=== PATIENT | male | born 1965 | race Caucasian/White ===

== ENCOUNTER 2017-05-07 21:12 | Observation (INO) | payer OTHER ==
[~2017-05-07] VITALS: Ht 172.7 cm; Wt 82.0 kg
[2017-05-07 21:28] VITALS: BP 109/77; PULSE 104; RESP 18; O2SAT 97
[2017-05-07] MEDS ORDERED: LOSA50TA PO (21:36)
[2017-05-07] MEDS ORDERED: PROZ20CA11 PO (21:36)
[2017-05-07] MEDS ORDERED: METF750T PO (21:36)
[2017-05-07 21:38] VITALS: RESP 15; O2SAT 97
--- NOTE | 2017-05-07 21:41 | PD ---
HPI Chief Complaint: Syncope/Near-Syncope Time Seen by Provider: 21:15 Travel History International Travel<30 days: No Contact w/Intl Traveler<30days: No Traveled to known affect area: No History of Present Illness HPI 52-year-old white male with a history of type 2 diabetes and hypertension presents in police custody for medical clearance. The police had responded to the patient's home due to a domestic violence report. The patient admits to drinking approximate sixpack of beer today. While in the police car the patient states that he felt very hot. He stepped out of the vehicle became diaphoretic and near syncopal. The patient denies shortness of breath, nausea, vomiting. He does admit to having chest pressure now for the past few hours. He rates his pain a 3/10. He states that it's on the left side of his chest with radiation to his left shoulder. He states that this had started earlier in the day before he had his argument with family. He states that is been persistent since then. There has been no alleviating or exacerbating activities. He denies any abdominal pain, urinary symptoms, numbness, tingling or weakness. He denies any history of heart disease. He denies tobacco, drugs. PFSH Past Medical History Narrative Medical Depression, diabetes type 2, hypertension Depression: Yes Cardiovascular Problems: Yes (HTN) Diabetes: Yes Patient Takes Glucophage: Yes Tetanus Vaccination: < 5 Years Past Surgical History Surgical History: No Previous Surgery Social History Alcohol Use: Yes Tobacco Use: No Substance Use: No Allergies-Medications (Allergen,Severity, Reaction): Coded Allergies: No Known Allergies (Verified Allergy, Unknown, 05/07/17) Reported Meds & Prescriptions Reported Meds & Active Scripts Active Reported Metoprolol Tartrate 25 Mg Tab 12.5 Mg PO BID Amitriptyline (Amitriptyline HCl) 100 Mg Tab 100 Mg PO HS Prozac (Fluoxetine HCl) 20 Mg Cap 20 Mg PO DAILY Losartan (Losartan Potassium) 50 Mg Tab 100 Mg PO DAILY Metformin ER (Metformin HCl) 750 Mg Justino 750 Mg PO BID With evening meal Review of Systems General / Constitutional: No: Fever Eyes: No: Visual changes HENT: No: Headaches Cardiovascular: Positive: Chest Pain or Discomfort, Diaphoresis, No: Palpitations, Irregular Rhythm, Tachycardia Respiratory: Positive: Cough, No: Shortness of Breath, Wheezing Gastrointestinal: No: Nausea, Vomiting, Abdominal Pain Genitourinary: No: Dysuria Musculoskeletal: No: Pain Skin: No Rash Neurologic: No: Weakness Psychiatric: No: Depression Endocrine: No: Polydipsia Hematologic/Lymphatic: No: Easy Bruising Physical Exam Narrative GENERAL: Well-developed, well-nourished in no apparent distress. Nontoxic appearing. Appears intoxicated. Speech is slurred. Skin: The patient is clammy. HEAD: Normocephalic, atraumatic. EYES: Pupils equal round and reactive. Extraocular motions intact. No scleral icterus. No injection or drainage. ENT: Nose clear. Throat without erythema, tonsillar hypertrophy or exudate. Uvula midline. Airway patent. NECK: Trachea midline. Supple, nontender, moves head freely. No central bony tenderness or spasm. CARDIOVASCULAR: Regular rate and rhythm without murmurs, gallops, or rubs. RESPIRATORY: Few rhonchi. No wheezes or Rales. GASTROINTESTINAL: Abdomen soft, non-tender, nondistended. No hepato-splenomegaly , or palpable masses. No guarding. EXTREMITIES: No clubbing, cyanosis, or edema. No joint tenderness. BACK: Nontender without deformity. No flank tenderness. NEUROLOGICAL: Awake, alert and oriented x 3 .Cranial nerves grossly intact. Motor and sensory grossly within normal limits. Normal speech. Data Data Last Documented VS Vital Signs Date Time Temp Pulse Resp B/P (MAP) Pulse Ox O2 Delivery O2 Flow Rate FiO2 05/07/17 22:09 102 16 100/57 (71) 96 Room Air Orders Orders Electrocardiogram (05/07/17 21:33) Basic Metabolic Panel (Bmp) (05/07/17 21:33) Ckmb (Isoenzyme) Profile (05/07/17 21:33) Complete Blood Count With Diff (05/07/17 21:33) Magnesium (Mg) (05/07/17 21:33) Prothrombin Time / Inr (Pt) (05/07/17 21:33) Act Partial Throm Time (Ptt) (05/07/17 21:33) Troponin I (05/07/17 21:33) Lipase (05/07/17 21:33) Chest, Single Ap (05/07/17 21:33) Ecg Monitoring (05/07/17 21:33) Bilateral Bp Monitoring (05/07/17 21:33) Iv Access Insert/Monitor (05/07/17 21:33) Oximetry (05/07/17 21:33) Oxygen Administration (05/07/17 21:33) Aspirin Chew (Aspirin Chew) (05/07/17 21:45) Sodium Chloride 0.9% Flush (Ns Flush) (05/07/17 21:45) Nitroglycerin Sl (Nitrostat Sl) (05/07/17 21:45) Alcohol (Ethanol) (05/07/17 21:41) Sodium Chlor 0.9% 1000 Ml Inj (Ns 1000 M (05/07/17 22:15) Sodium Chlor 0.9% 1000 Ml Inj (Ns 1000 M (05/07/17 22:15) CKMB (05/07/17 21:48) CKMB% (05/07/17 21:48) Place In Observation (05/07/17 23:22) Activity Bed Rest With Brp (05/07/17 23:22) Vital Signs (Adult) Q4H (05/07/17 23:22) Cardiac Rhythm .As Directed (05/07/17 23:22) Notify Dr: Other .PRN (05/07/17 23:22) Notify Dr. Parameters (05/07/17 23:22) Resp Oxygen Nasal Cannula (05/07/17 ) Diet Npo (05/08/17 Breakfast) Ckmb (Isoenzyme) Profile (05/08/17 00:30) Ckmb (Isoenzyme) Profile (05/08/17 03:30) Troponin I (05/08/17 00:30) Troponin I (05/08/17 03:30) Electrocardiogram (05/08/17 00:30) Electrocardiogram (05/08/17 03:30) ^ Obtain (05/07/17 23:22) Sodium Chloride 0.9% Flush (Ns Flush) (05/07/17 23:30) Sodium Chloride 0.9% Flush (Ns Flush) (05/08/17 09:00) Ondansetron Inj (Zofran Inj) (05/07/17 23:30) Famotidine (Pepcid) (05/08/17 09:00) Aspirin (Aspirin) (05/08/17 09:00) Senior Ui Web Developer / Telemetry DESTIN.Q8H (05/07/17 23:22) Admit Order (Ed Use Only) (05/08/17 00:08) CKMB (05/08/17 01:05) CKMB% (05/08/17 01:05) Labs Laboratory Tests Test 05/07/17 21:40 05/07/17 21:48 Ethyl Alcohol Level 302 MG/DL White Blood Count 7.1 TH/MM3 Red Blood Count 4.55 MIL/MM3 Hemoglobin 14.2 GM/DL Hematocrit 41.9 % Mean Corpuscular Volume 92.1 FL Mean Corpuscular Hemoglobin 31.2 PG Mean Corpuscular Hemoglobin Concent 33.9 % Red Cell Distribution Width 13.2 % Platelet Count 223 TH/MM3 Mean Platelet Volume 6.6 FL Neutrophils (%) (Auto) 74.1 % Lymphocytes (%) (Auto) 18.4 % Monocytes (%) (Auto) 7.0 % Eosinophils (%) (Auto) 0.2 % Basophils (%) (Auto) 0.3 % Neutrophils # (Auto) 5.3 TH/MM3 Lymphocytes # (Auto) 1.3 TH/MM3 Monocytes # (Auto) 0.5 TH/MM3 Eosinophils # (Auto) 0.0 TH/MM3 Basophils # (Auto) 0.0 TH/MM3 CBC Comment DIFF FINAL Differential Comment Prothrombin Time 10.4 SEC Prothromb Time International Ratio 1.0 RATIO Activated Partial Thromboplast Time 19.4 SEC Blood Urea Nitrogen 8 MG/DL Creatinine 1.33 MG/DL Random Glucose 192 MG/DL Calcium Level 8.0 MG/DL Magnesium Level 2.0 MG/DL Sodium Level 139 MEQ/L Potassium Level 3.5 MEQ/L Chloride Level 103 MEQ/L Carbon Dioxide Level 22.2 MEQ/L Anion Gap 14 MEQ/L Estimat Glomerular Filtration Rate 56 ML/MIN Total Creatine Kinase 422 U/L Creatine Kinase MB 6.2 NG/ML Creatine Kinase MB % 1.5 % Troponin I LESS THAN 0.02 NG/ML Lipase 152 U/L MDM Medical Decision Making Medical Screen Exam Complete: Yes Emergency Medical Condition: Yes Medical Record Reviewed: Yes Interpretation(s) Laboratory Tests Test 05/07/17 21:40 05/07/17 21:48 Ethyl Alcohol Level 302 MG/DL White Blood Count 7.1 TH/MM3 Red Blood Count 4.55 MIL/MM3 Hemoglobin 14.2 GM/DL Hematocrit 41.9 % Mean Corpuscular Volume 92.1 FL Mean Corpuscular Hemoglobin 31.2 PG Mean Corpuscular Hemoglobin Concent 33.9 % Red Cell Distribution Width 13.2 % Platelet Count 223 TH/MM3 Mean Platelet Volume 6.6 FL Neutrophils (%) (Auto) 74.1 % Lymphocytes (%) (Auto) 18.4 % Monocytes (%) (Auto) 7.0 % Eosinophils (%) (Auto) 0.2 % Basophils (%) (Auto) 0.3 % Neutrophils # (Auto) 5.3 TH/MM3 Lymphocytes # (Auto) 1.3 TH/MM3 Monocytes # (Auto) 0.5 TH/MM3 Eosinophils # (Auto) 0.0 TH/MM3 Basophils # (Auto) 0.0 TH/MM3 CBC Comment DIFF FINAL Differential Comment Prothrombin Time 10.4 SEC Prothromb Time International Ratio 1.0 RATIO Activated Partial Thromboplast Time 19.4 SEC Blood Urea Nitrogen 8 MG/DL Creatinine 1.33 MG/DL Random Glucose 192 MG/DL Calcium Level 8.0 MG/DL Magnesium Level 2.0 MG/DL Sodium Level 139 MEQ/L Potassium Level 3.5 MEQ/L Chloride Level 103 MEQ/L Carbon Dioxide Level 22.2 MEQ/L Anion Gap 14 MEQ/L Estimat Glomerular Filtration Rate 56 ML/MIN Total Creatine Kinase 422 U/L Creatine Kinase MB 6.2 NG/ML Creatine Kinase MB % 1.5 % Troponin I LESS THAN 0.02 NG/ML Lipase 152 U/L EKG: Sinus tachycardia with a ventricular rate of 103. Left axis deviation (-30 ) with incomplete right bundle branch block. Nonspecific ST-T wave changes. No ST elevation. No STEMI. Differential Diagnosis MDM: High Differential diagnoses: Coronary artery disease, STEMI, angina, pneumothorax, pericarditis, endocarditis, hyperthyroidism, arrhythmia, pulmonary embolus, pneumonia, electrolyte abnormality Narrative Course IV access is obtained. Patient is placed on a monitor. Routine laboratory tests sent for analysis including EKG. Patient is given 2 baby aspirin and nitroglycerin sublingual. Patient has had no significant improvement with 2 nitroglycerin except for headache. His blood pressure has been maintained. The patient is intoxicated. His laboratory testing as mildly elevated CK but negative MB and troponin. EKG shows no acute ST changes. With the patient having this near syncopal event as well as associated chest pain we will observe him in the chest pain center. Once his alcohol is less than 200 he will be Transferred to the chest pain center. Patient is accompanied by PD. This is chest pain, alcohol intoxication Diagnosis Primary Impression: Chest pain Qualified Codes: R07.9 - Chest pain, unspecified Additional Impression: Alcohol intoxication Qualified Codes: F10.920 - Alcohol use, unspecified with intoxication, uncomplicated Admitting Information Admitting Physician Requests: Observation Condition: Stable Florentin Howe May 07, 2017 21:41
[2017-05-07] MEDS ORDERED: SODIUM CHLORIDE 0.9% FLUSH 10 ML FLUSH IVF PRN (21:45)
[2017-05-07] MEDS ORDERED: ASPIRIN 81 MG CHEW TAB PO ONE (21:45)
[2017-05-07 21:51] VITALS: BP 117/72; PULSE 112; RESP 15; O2SAT 95
[2017-05-07] MEDS: NITROGLYCERIN 0.4 MG SL 25 TABS/BTL SL SCH ×2 (21:52→22:01)
[2017-05-07 21:59] VITALS: BP 106/67; PULSE 109; RESP 14; O2SAT 96
--- NOTE | 2017-05-07 22:00 | RADRPT ---
EXAM DATE/TIME: 05/07/2017 21:37 [facility] COMPARISON: No previous studies available for comparison. INDICATIONS : Chest pain MEDICAL HISTORY : None. SURGICAL HISTORY : None. ENCOUNTER: Initial ACUITY: 1 day PAIN SCORE: 8/10 LOCATION: chest FINDINGS: A single view of the chest demonstrates the lungs to be symmetrically aerated without evidence of mas s, infiltrate or effusion. The cardiomediastinal contours are unremarkable. Osseous structures are intact. CONCLUSION: No acute disease. Jamie Fernandes MD on May 07, 2017 at 21:58 Board Certified Radiologist. This report was verified electronically.
[2017-05-07 22:09] VITALS: BP 100/57; PULSE 102; RESP 16; O2SAT 96
[2017-05-07 22:09] LABS: AUTOMATED NEUTROPHIL # 5.3 TH/MM3 (1.8-7.7); BASOPHIL % 0.3 % (0.0-2.0); EOSINOPHIL % 0.2 % (0.0-4.0); HEMATOCRIT 41.9 % (39.0-51.0); HEMO FLAGS DIFF FINAL; LYMPH % 18.4 % (9.0-44.0); LYMPHOCYTE # 1.3 TH/MM3 (1.0-4.8); MEAN CELL VOLUME 92.1 FL (80.0-100.0); MEAN CORPUSCULAR HEMOGLOBIN 31.2 PG (27.0-34.0); MEAN CORPUSCULAR HGB CONC 33.9 % (32.0-36.0); NEUT % 74.1 % (16.0-70.0); PLATELET COUNT 223 TH/MM3 (150-450); RED BLOOD COUNT 4.55 MIL/MM3 (4.50-5.90); RED CELL DISTRIBUTION WIDTH 13.2 % (11.6-17.2); WHITE BLOOD COUNT 7.1 TH/MM3 (4.0-11.0)
[2017-05-07] MEDS ORDERED: SODIUM CHLOR 0.9% 1000 ML INJ 1,000 ML IV ONE ×2 (22:15)
[2017-05-07 22:25] LABS: APTT (PATIENT) 19.4 SEC (24.3-30.1); PROTHROMBIN TIME - PATIENT 10.4 SEC (9.8-11.6)
--- NOTE | 2017-05-07 22:26 | EKG ---
Date Performed: 05/07/2017 Time Performed: 21:36:51 PTAGE: 52 years EKG: SINUS TACHYCARDIA BORDERLINE LEFT AXIS DEVIATION INCOMPLETE RIGHT BUNDLE BRANCH BLOCK NONSP ECIFIC T-WAVE ABNORMALITY ABNORMAL RHYTHM ECG NO PREVIOUS TRACING DOCTOR: Junior Franklin Interpretating Date/Time 05/07/2017 22:26:09
[2017-05-07 22:40] LABS: CREATINE KINASE 422 U/L (39-308)
[2017-05-07 22:42] LABS: ANION GAP 14 MEQ/L (5-15); BICARBONATE 22.2 MEQ/L (21.0-32.0); BLOOD UREA NITROGEN 8 MG/DL (7-18); CHLORIDE 103 MEQ/L (98-107); GLOMERULAR FILTRATION RATE 56 ML/MIN (>89); POTASSIUM 3.5 MEQ/L (3.5-5.1); SODIUM (NA) 139 MEQ/L (136-145)
[2017-05-07 22:54] LABS: CKMB 6.2 NG/ML (0.5-3.6)
[2017-05-07] MEDS ORDERED: SODIUM CHLORIDE 0.9% FLUSH 10 ML FLUSH IV FLUSH PRN (23:30)
[2017-05-07] MEDS ORDERED: ONDANSETRON HCL 4 MG/2 ML VIAL IV PUSH PRN (23:30)
[2017-05-07] MEDS ORDERED: METO25TA3 PO (23:42)
[2017-05-07] MEDS ORDERED: AMIT100T2 PO (23:42)
[2017-05-08 00:13] VITALS: BP 124/66; PULSE 90; RESP 16; O2SAT 97
[2017-05-08 01:09] VITALS: O2SAT 98
[2017-05-08 01:33] LABS: CREATINE KINASE 384 U/L (39-308)
[2017-05-08 01:46] LABS: CKMB 5.9 NG/ML (0.5-3.6)
[2017-05-08 03:13] VITALS: BP 129/82; PULSE 97; RESP 17; O2SAT 99
[2017-05-08 04:33] VITALS: BP 149/94; PULSE 93; RESP 18; TEMP 98.1; O2SAT 95
[2017-05-08 04:40] LABS: CREATINE KINASE 399 U/L (39-308)
[2017-05-08 04:52] LABS: CKMB 5.9 NG/ML (0.5-3.6)
[2017-05-08 07:34] VITALS: BP 189/91; PULSE 99; RESP 18; TEMP 98.4; O2SAT 96
[2017-05-08] MEDS ORDERED: ACETAMINOPHEN 500 MG CPLT PO PRN (07:45)
[2017-05-08] MEDS ORDERED: NITROGLYCERIN 0.4 MG SL 25 TABS/BTL SL PRN (07:45)
[2017-05-08] MEDS ORDERED: FAMOTIDINE 20 MG TAB PO SCH (09:00)
[2017-05-08] MEDS ORDERED: LOSARTAN 50 MG TAB PO SCH (09:00)
[2017-05-08] MEDS ORDERED: ASPIRIN 325 MG TAB PO SCH ×2 (09:00)
[2017-05-08] MEDS ORDERED: SODIUM CHLORIDE 0.9% FLUSH 10 ML FLUSH IV FLUSH SCH (09:00)
[2017-05-08] MEDS ORDERED: FLUoxetine HCL 20 MG CAP PO SCH (09:00)
[2017-05-08 11:41] VITALS: BP 171/81; PULSE 96; RESP 18; TEMP 98; O2SAT 95
--- NOTE | 2017-05-08 12:33 | HHI.HP ---
HPI Primary Care Physician [facility] Chief Complaint Chest pain History of Present Illness 52-year-old male with known diabetes, hypertension, and depression presents emergency room for further evaluation of chest pain. Onset last evening, unable to give accurate time. Location substernal. Characterized as a "dull ache." Severity moderate. No radiation of pain. Although endorses left arm numb for many hours to follow. Duration of chest discomfort hours. Associated symptoms include diaphoresis. No associated symptoms of nausea, vomiting, or dyspnea. No known precipitating or relieving factors. Denies similar pain in the past. Endorses last evening he had a domestic dispute with his parents. Subsequently arrested. He was brought here by police for medical clearance. Patient admits to drinking a large monitored alcohol last evening, unable to give accurate amount drink. Review of Systems General: No fatigue,weakness, fever, chills, or recent illness. Has been in his general state of health. HEENT: No LEON, no vision changes, no nasal congestion or drainage, no dysphasia CV: No CP, pressure, palpitations, intermittent leg pain, dizziness RESP: No SOB, cough, wheeze, hemoptysis, asthma GI: No nausea, vomiting, bowel changes. No change in appetite, no unintentional weight gain or weight loss. : No dysuria, urgency, frequency EXT: No lower leg edema MS: No discomfort or change in ROM NEURO: No dizziness, difficulty with balance, LOC, motor/sensory deficits PSYCH: History of depression, states stable on current medication regimen. No past or current suicidal ideation. SKIN: No rashes, no concerning lesions Past Family Social History Allergies: Coded Allergies: No Known Allergies (Verified Allergy, Unknown, 05/07/17) Past Medical History Type 2 diabetes, hypertension, depression Past Surgical History None Reported Medications Reported Meds & Active Scripts Active Reported Metoprolol Tartrate 25 Mg Tab 12.5 Mg PO BID Amitriptyline (Amitriptyline HCl) 100 Mg Tab 100 Mg PO HS Prozac (Fluoxetine HCl) 20 Mg Cap 20 Mg PO DAILY Losartan (Losartan Potassium) 50 Mg Tab 100 Mg PO DAILY Metformin ER (Metformin HCl) 750 Mg Justino 750 Mg PO BID With evening meal Active Ordered Medications Current Medications Medications (Trade) Dose Ordered Sig/Lily Route Start Time Stop Time Status Last Admin (NS Flush) 2 ml UNSCH PRN IVF 05/07/17 21:45 (NS Flush) 2 ml UNSCH PRN IV FLUSH 05/07/17 23:30 (NS Flush) 2 ml BID IV FLUSH 05/08/17 09:00 05/08/17 08:30 (Zofran Inj) 4 mg Q6H PRN IV PUSH 05/07/17 23:30 (Pepcid) 20 mg BID PO 05/08/17 09:00 05/08/17 08:30 (PROzac) 20 mg DAILY PO 05/08/17 09:00 05/08/17 08:30 (Cozaar) 100 mg DAILY PO 05/08/17 09:00 05/08/17 08:30 (Tylenol) 500 mg Q4H PRN PO 05/08/17 07:45 (Nitrostat Sl) 0.4 mg Q5M PRN SL 05/08/17 07:45 (Aspirin) 325 mg DAILY PO 05/08/17 09:00 05/08/17 08:29 Family History Noncontributory for early onset cardiovascular disease. Social History Known diabetes and hypertension. Diagnosed with diabetes one year ago reported to be well controlled with metformin. No known coronary artery disease or hyperlipidemia. Lifelong nonsmoker. Endorses 4 beers 2-3 nights weekly. Denies any illegal drug use. Active walking 1-2 miles daily. Past cardiac testing None Physical Exam Vital Signs Vital Signs Date Time Temp Pulse Resp B/P (MAP) Pulse Ox O2 Delivery O2 Flow Rate FiO2 05/08/17 11:41 98.0 96 18 171/81 (111) 95 05/08/17 07:34 98.4 99 18 189/91 (123) 96 05/08/17 04:33 98.1 93 18 149/94 (112) 95 05/08/17 04:23 05/08/17 03:13 97 17 129/82 (98) 99 Room Air 05/08/17 01:09 98 Nasal Cannula 2.00 05/08/17 00:13 90 16 124/66 (85) 97 Nasal Cannula 2.00 05/07/17 22:09 102 16 100/57 (71) 96 Room Air 05/07/17 21:59 109 14 106/67 (80) 96 Room Air 05/07/17 21:51 112 15 117/72 (87) 95 Room Air 05/07/17 21:38 15 97 Room Air 05/07/17 21:36 102 15 97 Room Air 05/07/17 21:28 104 18 109/77 (88) 97 Physical Exam GENERAL: Alert WN, WD, NAD, pleasant, male HEAD: NC, AT NECK: Supple, no masses, trachea midline CV: RRR, without murmur, rub, gallop, no JVD, S1-S2 no S3-S4. No carotid bruits. RESP: Clear lungs throughout bilateral, no crackles, wheeze, rhonchi, symmetrical chest rise, nonlabored, able to speak in full sentences ABD: Soft, NT, ND, no masses, positive bowel tones EXT: Pulses +24, no dependent edema MS: Normal tone 4 extremities, nontender, no obvious deformities, full range of motion NEURO: CN II through CN XII grossly intact, motor strength 5/5, fine tremors bilateral hands PSYCH: A+O 3, pleasant affect, appropriate speech, mood, insight and judgment SKIN: Normal turgor, normal texture, no lesions, no rashes, brisk cap refill, even hair distribution Laboratory Laboratory Tests Test 05/07/17 21:40 05/07/17 21:48 05/08/17 01:05 05/08/17 03:50 Ethyl Alcohol Level 302 White Blood Count 7.1 Red Blood Count 4.55 Hemoglobin 14.2 Hematocrit 41.9 Mean Corpuscular Volume 92.1 Mean Corpuscular Hemoglobin 31.2 Mean Corpuscular Hemoglobin Concent 33.9 Red Cell Distribution Width 13.2 Platelet Count 223 Mean Platelet Volume 6.6 Neutrophils (%) (Auto) 74.1 Lymphocytes (%) (Auto) 18.4 Monocytes (%) (Auto) 7.0 Eosinophils (%) (Auto) 0.2 Basophils (%) (Auto) 0.3 Neutrophils # (Auto) 5.3 Lymphocytes # (Auto) 1.3 Monocytes # (Auto) 0.5 Eosinophils # (Auto) 0.0 Basophils # (Auto) 0.0 CBC Comment DIFF FINAL Differential Comment Prothrombin Time 10.4 Prothromb Time International Ratio 1.0 Activated Partial Thromboplast Time 19.4 Blood Urea Nitrogen 8 Creatinine 1.33 Random Glucose 192 Calcium Level 8.0 Magnesium Level 2.0 Sodium Level 139 Potassium Level 3.5 Chloride Level 103 Carbon Dioxide Level 22.2 Anion Gap 14 Estimat Glomerular Filtration Rate 56 Total Creatine Kinase 422 384 399 Creatine Kinase MB 6.2 5.9 5.9 Creatine Kinase MB % 1.5 1.5 1.5 Troponin I LESS THAN 0.02 LESS THAN 0.02 LESS THAN 0.02 Lipase 152 Result Diagram: 05/07/17214705/07/172147 Imaging Last Impressions Chest X-Ray 05/07/172132 Signed Impressions: Service Date/Time: May 21:37 - CONCLUSION: No acute disease. Jamie Fernandes MD Course EKG Normal sinus rhythm, left axis, no ST or T-segment changes Caprini VTE Risk Assessment Caprini VTE Risk Assessment: No/Low Risk (score <= 1) Caprini Risk Assessment Model Point Value = 1 Point Value = 2 Point Value = 3 Point Value = 5 Age 41-60 Minor surgery BMI > 25 kg/m2 Swollen legs Varicose veins or History of unexplained or recurrent spontaneous Oral contraceptives or hormone replacement Sepsis (< 1 month) Serious lung disease, including pneumonia (< 1 month) Abnormal pulmonary function Acute myocardial infarction Congestive heart failure (< 1 month) History of inflammatory bowel disease Medical patient at bed rest Age 61-74 Arthroscopic surgery Major open surgery (> 45 min) Laparoscopic surgery (> 45 min) Malignancy Confined to bed (> 72 hours) Immobilizing plaster cast Central venous access Age >= 75 History of VTE Family history of VTE Factor V Leiden Prothrombin [id number] Lupus anticoagulant Anticardiolipin antibodies Elevated serum homocysteine Heparin-induced thrombocytopenia Other congenital or acquired thrombophilia Stroke (< 1 month) Elective arthroplasty Hip, pelvis, or leg fracture Acute spinal cord injury (< 1 month) Prophylaxis Regimen Total Risk Factor Score Risk Level Prophylaxis Regimen 0-1 Low Early ambulation 2 Moderate Order ONE of the following: *Sequential Compression Device (SCD) *Heparin 5000 units SQ BID 3-4 Higher Order ONE of the following medications: *Heparin 5000 units SQ TID *Enoxaparin/Lovenox 40 mg SQ daily (WT < 150 kg, CrCl > 30 mL/min) *Enoxaparin/Lovenox 30 mg SQ daily (WT < 150 kg, CrCl > 10-29 mL/min) *Enoxaparin/Lovenox 30 mg SQ BID (WT < 150 kg, CrCl > 30 mL/min) AND/OR *Sequential Compression Device (SCD) 5 or more Highest Order ONE of the following medications: *Heparin 5000 units SQ TID (Preferred with Epidurals) *Enoxaparin/Lovenox 40 mg SQ daily (WT < 150 kg, CrCl > 30 mL/min) *Enoxaparin/Lovenox 30 mg SQ daily (WT < 150 kg, CrCl > 10-29 mL/min) *Enoxaparin/Lovenox 30 mg SQ BID (WT < 150 kg, CrCl > 30 mL/min) AND *Sequential Compression Device (SCD) Assessment and Plan Assessment and Plan #1 Atypical chest pain-admitted chest pain center. Ruled out with 3 sets of EKGs, cardiac enzymes, monitor overnight. Will be seen and evaluated by Dr. Rusty Narayan. Discussed likelihood of completing further cardiac testing after evaluation by lvn lpn. Exercise stress test would be preferred test , however due to patient's questionable alcohol withdrawal chemical stress test most likely would be required for safety. Naturally if stress test unremarkable , discharge later this afternoon. #2 alcohol abuse-ethyl alcohol level 302 upon admission, recommended alcohol use guidelines discussed including no more than 2 alcoholic drinks daily. Possible senior living alcohol use discussed in length. Strongly encouraged him to consider stopping drinking all together. #3 Hypertension-continue losartan. Hold metoprolol until cardiac testing completed. Follow-up with PCP. #4 Diabetes type 2-resume after cardiac testing completed, follow-up with PCP, made aware alcohol effects blood sugar levels Chandni Mark May 08, 2017 12:33
[2017-05-08] MEDS ORDERED: FLUMAZENIL 0.5 MG/5 ML VIAL IV PUSH PRN (12:45)
[2017-05-08] MEDS ORDERED: LORazepam 2 MG TAB PO PRN (12:45)
[2017-05-08] MEDS ORDERED: LORazepam 2 MG/ML VIAL IV PUSH PRN ×4 (12:45)
[2017-05-08] MEDS: LORazepam 1 MG TAB PO PRN ×2 (13:32→17:12)
--- NOTE | 2017-05-08 13:39 | EKG ---
Date Performed: 05/08/2017 Time Performed: 01:11:16 PTAGE: 52 years EKG: Sinus rhythm MARKED LEFT AXIS DEVIATION ABNORMAL ECG PREVIOUS TRACING : 05/07/2017 21.36 Since previous tracing, no significant change noted DOCTOR: Rusty Narayan Interpretating Date/Time 05/08/2017 13:37:59
--- NOTE | 2017-05-08 13:43 | EKG ---
Date Performed: 05/08/2017 Time Performed: 03:48:54 PTAGE: 52 years EKG: Sinus rhythm MARKED LEFT AXIS DEVIATION ABNORMAL ECG PREVIOUS TRACING : 05/08/2017 01.11 Since previous tracing, no significant change noted DOCTOR: Rusty Narayan Interpretating Date/Time 05/08/2017 13:43:06
[2017-05-08] MEDS ORDERED: REGADENOSON INJ 0.4 MG/5 ML SYR ONE (14:49)
[2017-05-08] MEDS ORDERED: cloNIDine HCL 0.1 MG TAB PO PRN (16:00)
--- NOTE | 2017-05-08 16:29 | RADRPT ---
EXAM DATE/TIME: 05/08/2017 14:23 [facility] COMPARISON: No previous studies available for comparison. INDICATIONS : Left sided chest and shoulder pain for one day. Angina. DOSE: 26.5 mCi Tc99m Myoview at stress. 8.5 mCi Tc99m Myoview at rest. 0.4 mg Lexiscan STRESS SYMPTOMS: Shortness of breath and flush. EJECTION FRACTION: 68% MEDICAL HISTORY : Diabetes mellitus type 2. Hypertension. SURGICAL HISTORY : None. ENCOUNTER: Initial ACUITY: 1 day PAIN SCALE: 3/10 LOCATION: Left chest TECHNIQUE: The patient underwent pharmacologic stress with infusion of prescribed dose. Continuous ECG tracing was monitored during stress. Gated SPECT imaging was performed after stress and conventional SPECT i maging was performed at rest. The examination was performed on a SPECT/CT scanner, both attenuation and non-corrected datasets were reviewed. FINDINGS: DISTRIBUTION: The maximum perfused segment at stress is in the septal wall. PERFUSION STUDY: The pattern of perfusion at stress is within normal limits. GATED STUDY: There is intact wall motion and thickening without hypokinetic or dyskinetic segments. CONCLUSION: 1. Unremarkable myocardial perfusion scan. RISK CATEGORY: Low (<1% Annual Mortality Rate) Maximus Salinas MD on May 08, 2017 at 16:07 Board Certified Radiologist. This report was verified electronically.
--- NOTE | 2017-05-08 16:41 | HHI.DCPOC ---
Discharge Care Plan Diagnosis: (1) Atypical chest pain (2) Type 2 diabetes mellitus (3) Alcohol intoxication Goals to Promote Your Health * To prevent worsening of your condition and complications * To maintain your health at the optimal level Directions to Meet Your Goals Take your medications as prescribed Follow your dietary instruction Follow activity as directed Keep your appointments as scheduled Take your immunizations and boosters as scheduled If your symptoms worsen call your PCP, if no PCP go to Urgent Care Center or Emergency Room Smoking is Dangerous to Your Health. Avoid second hand smoke Call the 24-hour hour crisis hotline for domestic abuse at Chandni Mark May 08, 2017 16:41
--- NOTE | 2017-05-09 10:39 | TR ---
Date Performed: 05/08/2017 Time Performed: 14:58:18 DOCTOR: Rusty Narayan DRUG LIST: CLINICAL HISTORY: ANGINA REASON FOR TEST: Angina REASON FOR ENDING: OBSERVATION: CONCLUSION: Lexiscan stress test was performed under standard four minute protocol. Radion[place] e was injected one minute prior to ending the test. No electrocardiographic abormalities were present to suggest ischemia. Nuclear imaging and interpretation are pending. COMMENTS:
== END 2017-05-08 18:21 | disposition home or self-care (01) ==
LOC: NEPD 21:12 → NEDA 05-08 00:10 → NEPFCDU 05-08 04:09
DX: R07.89 Other chest pain (principal); F10.129 Alcohol abuse with intoxication, unspecified; R51 Headache; R00.1 Bradycardia, unspecified; I45.10 Unspecified right bundle-branch block; R00.0 Tachycardia, unspecified; R94.31 Abnormal electrocardiogram [ECG] [EKG]; R61 Generalized hyperhidrosis; R20.0 Anesthesia of skin; M25.512 Pain in left shoulder; I20.9 Angina pectoris, unspecified; I10 Essential (primary) hypertension; E78.5 Hyperlipidemia, unspecified; E11.9 Type 2 diabetes mellitus without complications; F32.9 Major depressive disorder, single episode, unspecified; Y90.8 Blood alcohol level of 240 mg/100 ml or more; Z79.84 Long term (current) use of oral hypoglycemic drugs; Z79.899 Other long term (current) drug therapy
CPT/HCPCS: 71010; 78452; 80048; 80307; 82550; 82552; 83690; 83735; 84484; 85025; 85610; 85730; 93005; 93017; 96360; 96361; 99285; A9502; G0378; J2785; J7030